=== PATIENT | male | born 1945 | race Two or more races ===

== ENCOUNTER 2019-10-04 07:39 | Outpatient (CLI) | payer MEDICARE, MEDICAID | END 2019-10-04 23:59 | disposition home or self-care (01) | LOC: CVU 07:39 | PROVIDERS: ATTEND Internal Medicine Cardiovascular Disease | DX: I08.0 Rheumatic disorders of both mitral and aortic valves (principal); R06.02 Shortness of breath | CPT/HCPCS: 93306 ==

== ENCOUNTER 2021-01-13 07:38 | Outpatient (CLI) | payer MEDICARE, MEDICAID ==
[~2021-01-13 07:38] MED LIST: REGADENOSON 0.4 MG/5 ML SYRINGE ONE
== END 2021-01-14 23:59 | disposition home or self-care (01) ==
LOC: CFH 07:38
PROVIDERS: ATTEND Internal Medicine Cardiovascular Disease
DX: I10 Essential (primary) hypertension (principal); R06.00 Dyspnea, unspecified
CPT/HCPCS: 78452; 93017; A9502; J2785